=== PATIENT | female | born 1935 | race Caucasian/White ===

== ENCOUNTER 2019-12-17 15:46 | Observation (INO) | payer OTHER ==
[2019-12-17] MEDS ORDERED: MORPHINE 2 MG/ML SYR ONE ×2 (17:04→17:32)
[2019-12-17 17:19] LABS: Absolute Lymphocytes (CBC) 1.1 K/uL (0.7-4.9); Basophils % 0.6 % (0-1.3); Hematocrit 39.6 % (36.0-45.0); Lymphocytes % 9.3 % (15.3-44.8); MPV 9.8 fL (7.6-11.3); RBC Red Blood Cell Count 4.68 M/uL (3.86-4.86)
[2019-12-17 17:27] LABS: Potassium 3.7 mmol/L (3.5-5.1)
[2019-12-17] MEDS ORDERED: LIDOCAINE VISCOUS 2% SOLN 15 ML UDC ONE (17:32)
[2019-12-17] MEDS ORDERED: MAGNE/ALUM HYDROXD 30 ML UCUP ONE (17:32)
--- NOTE | 2019-12-17 17:48 | RAD REPORT ---
EXAM DESCRIPTION: CT - Abdomen Pelvis W Contrast - 12/17/2019 5:14 pm CLINICAL HISTORY: Low back pain COMPARISON: CT ABD PELVIS W CONTRAST dated 03/12/2014; Chest Pa And Lat (2 Views) dated 02/18/2019 TECHNIQUE: Biphasic, helical CT imaging of the abdomen and pelvis was performed following 100 ml non -ionic IV contrast. No oral contrast administered. All CT scans are performed using dose optimization technique as appropriate and may include automated exposure control or mA/KV adjustment according to patient size. FINDINGS: Parenchymal stranding in the left base is probably scarring. Atelectasis is possible. Mass lesion or infiltrate not suspected. No pleural effusion. No pericardial thickening or effusion. Liver is grossly abnormal. There are numerous variably sized low-density masses scattered throughout the hepatic parenchyma largest 18 mm in size. Imaging characteristics are not those of simple cysts. Metastatic disease is the primary consideration. No portal vein abnormality. No primary pancreatic so lid or cystic mass identified. Pancreatic duct is prominent but head and uncinate pancreatic tissue s how homogeneous enhancement and attenuation. No splenic abnormality. Gallbladder is absent. Biliary t ree within normal limits for a post cholecystectomy patient. The pancreatic and biliary dilatation ar e not substantially different from 2014. Symmetric renal function is seen with no hydronephrosis or suspicious renal mass. No pyelonephritis o r acute parenchymal process. Bilateral renal cysts are present. Right adrenal gland is normal. A 2 ce ntimeter lobulated enhancing left adrenal gland has not changed since 2014. Urinary bladder shows no suspicious finding. Atrophic uterus is present. No ovarian mass identifiable. No gastric dilatation or gastric wall thickening. No dilated small bowel or acute small bowel finding . There is a large amount of stool distending the cecum which is low-lying in the pelvic floor. Stool distends the ascending colon to the hepatic flexure level. An obstructing colon mass or wall thicken ing of the colon not identified. No free air, free fluid or inflammatory stranding. No hernia, mass or bulky lymphadenopathy. Disc and bone degenerative changes are present. Osteopenic changes are present. Patient has approxima tely 30% T10 and 50% T11 compression fracture deformity. Bones are osteopenic. Changes are probably n ew or progressive from February 2019. Age is otherwise uncertain. No clearly pathologic component. Significant portion of the right breast tissue is seen with no gross abnormality. Left breast tissue is not seen. The patient is status post left mastectomy. History from 2014 [address] study indicates breast cancer 1997 and lung cancer 1989. IMPRESSION: Innumerable low-density masses scattered throughout the hepatic parenchyma most likely m etastatic disease. Patient is far remote from breast and lung cancer history. The colon, uterus and ovaries show no christy s abnormalities. Primary source is uncertain. Osteopenic bony changes are present. No clearly pathologic bone process. Patient has T10 and T11 comp ression fractures with history indicating prior thoracic spine fracture. Age is uncertain but could b e new from February 2019.
--- NOTE | 2019-12-17 19:26 | EDPHYS ---
Physician Documentation [facility] Name: Kary Cesar Age: 83 yrs Sex: Female : 1935 Arrival Date: 12/17/2019 Time: 16:00 Bed 26 Private MD: ED Physician Alex Brownlee HPI: 12/17 07:37 This 83 yrs old Female presents to ER via EMS with complaints of Decreased kdr Appetite and low back pain. 07:37 Daughter reports that the patient has had decreased activity and appetite recently. kdr Also, she seems to be having more pain in her low back. Onset: The symptoms/episode began/occurred gradually, at an unknown time. Severity of symptoms: At their worst the symptoms were moderate. It is unknown whether or not the patient has had similar symptoms in the past. The patient has not recently seen a physician. Historical: - Allergies: 12/16 22:21 osteoarthritis; ls4 - Home Meds: 22:18 raloxifene 60 mg oral tab 1 tab once daily for Post-Menopausal Osteoporosis, Prevention ls4 of Breast Cancer [Active]; Xarelto 20 mg oral tab 1 tab once daily [Active]; - PMHx: 22:18 breast cancer; ls4 22:21 osteoarthritis; Osteoporosis; compression fractures thoracic spine; DVT; LUNG METASTES ls4 1989; - PSHx: 22:21 Cholecystectomy; LEFT MASTECTOMY; ls4 - Immunization history:: Adult Immunizations up to date. - Social history:: Smoking status: unknown. ROS: 12/17 07:37 Constitutional: Negative for fever, chills, and weight loss - the patinet is a poor kdr historian and slow to communicate but is generally appropirate Eyes: Negative for injury, pain, redness, and discharge, ENT: Negative for injury, pain, and discharge, Neck: Negative for injury, pain, and swelling, Cardiovascular: Negative for chest pain, palpitations, and edema, Respiratory: Negative for shortness of breath, cough, wheezing, and pleuritic chest pain, Abdomen/GI: Negative for abdominal pain, nausea, vomiting, diarrhea, and constipation, : Negative for injury, bleeding, discharge, and swelling, MS/Extremity: Negative for injury and deformity, Allergy/Immunology: Negative for hives, rash, and allergies. Back: Positive for pain at rest, pain with movement, of the low back area. MS/extremity: Positive for moving all fours. Skin: Positive for Poor skin turgor . Neuro: Positive for weakness, slow to respond but appropriate. Exam: 12/16 17:48 ECG was reviewed by the Attending Physician. kdr 12/17 07:37 Constitutional: This is a well developed, cachetic patient who is awake, somewhat and kdr in mild distress. She is moving her legs around as if in discomfort Head/Face: Normocephalic, atraumatic. Eyes: Pupils equal round and reactive to light, extra-ocular motions intact. Lids and lashes normal. Conjunctiva and sclera are non-icteric and not injected. Cornea within normal limits. Periorbital areas with no swelling, redness, or edema. Neck: Trachea midline, no thyromegaly or masses palpated, and no cervical lymphadenopathy. Supple, full range of motion without nuchal rigidity, or vertebral point tenderness. No Meningismus. Chest/axilla: Normal chest wall appearance and motion. Nontender with no deformity. No lesions are appreciated. Cardiovascular: Regular rate and rhythm with a normal S1 and S2. No gallops, murmurs, or rubs. Normal PMI, no JVD. No pulse deficits. Respiratory: Lungs have equal breath sounds bilaterally, clear to auscultation and percussion. No rales, rhonchi or wheezes noted. No increased work of breathing, no retractions or nasal flaring. Abdomen/GI: Soft, non-tender, with normal bowel sounds. No distension or tympany. No guarding or rebound. No evidence of tenderness throughout. Skin: Warm, dry with normal turgor. Normal color with no rashes, no lesions, and no evidence of cellulitis. MS/ Extremity: Pulses equal, no cyanosis. Neurovascular intact. Full, normal range of motion. Neuro: Awake and alert, GCS 15, oriented to person, place, time, and situation. Cranial nerves II-XII grossly intact. Motor strength 5/5 in all extremities. Sensory grossly intact. Cerebellar exam normal. Normal gait. Psych: Awake, alert, with orientation to person, place and time. Behavior, mood, and affect are within normal limits. Back: pain, that is mild, that is moderate, ROM is painful, normal spinal alignment noted. Vital Signs: 12/16 16:37 BP 168 / 82; Pulse 105; Resp 22; Temp 98.4; Pulse Ox 97% on R/A; dh4 18:00 BP 152 / 78; ls4 19:00 BP 148 / 70; Pulse 104; Resp 16; Pulse Ox 98% on R/A; Pain 5/10; ls4 20:00 BP 158 / 80; Pulse 104; Resp 16; Pulse Ox 98% on R/A; Pain 5/10; ls4 21:00 BP 129 / 70; Pulse 94; Resp 18; Pulse Ox 98% ; Pain 5/10; ls4 22:00 BP 125 / 68; Pulse 96; Resp 16; Temp 97.8(O); Pulse Ox 98% on R/A; Pain 5/10; ls4 MDM: 19:25 Patient medically screened. [facility] 12/17 07:37 Data reviewed: vital signs, nurses notes, lab test result(s), radiologic studies. kdr Counseling: I had a detailed discussion with the patient and/or guardian regarding: the historical points, exam findings, and any diagnostic results supporting the discharge/admit diagnosis, lab results, radiology results, the need for further work-up and treatment in the hospital. 12/16 16:44 Order name: CBC with Diff; Complete Time: 18:35 [facility] 12/16 16:44 Order name: Chem 7; Complete Time: 18:35 [facility] 12/16 19:40 Order name: Urinalysis W/Microscopic EDTN 12/16 19:40 Order name: Basic Metabolic Panel EDTN 12/16 19:40 Order name: Basic Metabolic Panel EDTN 12/16 19:40 Order name: CBC with Automated Diff EDTN 12/16 16:44 Order name: CT Abd/Pelvis - IV Contrast Only; Complete Time: 18:35 [facility] 12/16 19:40 Order name: Regular EDMS 12/16 19:40 Order name: CBC with Automated Diff EDMS 12/16 22:43 Order name: CREATININE WHOLE BLOOD EDMS EC/29 17:48 Rate is 106 beats/min. Rhythm is regular, Sinus tachycardia with PACs. QRS [place] is kdr Normal. Left axis deviation noted. SD interval is normal. QRS interval is normal. QT interval is normal. No Q waves. Clinical impression: NSR w/ Non-specific ST/T Changes and Sinus tachycardia. Administered Medications: 16:55 Drug: morphine 2 mg Route: IVP; Site: right antecubital; ls4 17:26 Drug: morphine 2 mg Route: IVP; Site: right antecubital; ls4 18:00 Follow up: Response: No adverse reaction; Marked relief of symptoms ls4 Disposition: 12/17/19 19:25 Hospitalization ordered by Cruzito Osman for Observation. Preliminary diagnosis are Weakness, Intractable Pain, Compression fractures of T10-T11, Metastatic (liver) cancer with uncertain primary source. - Bed requested for Telemetry/MedSurg (observation). - Status is Observation. sg - Condition is Fair. - Problem is an acute exacerbation. - Symptoms have improved. Signatures: Dispatcher [employer] EDMS Frankie Carr RN RN sg Alex Brownlee MD MD [facility] Tanisha Scales RN RN Brandie Crawley RN RN ls4 Corrections: (The following items were deleted from the chart) 16:49 16:44 Spine Lumbar Wo Con+CT.RAD.BRZ ordered. EDTN EDTN 19:34 19:25 Hospitalization Ordered by Cruzito Osman MD for Observation. Preliminary kdr diagnosis is Wedge compression fracture of T11-T12 vertebra; Weakness; Intractable Pain. Bed requested for Telemetry/MedSurg (observation). Status is Observation. Condition is Fair. Problem is an acute exacerbation. Symptoms have improved. kdr 20:37 19:34 12/17/2019 19:25 Hospitalization Ordered by Cruzito Osman MD for Observation. cg Preliminary diagnosis is Weakness; Intractable Pain; Compression fractures of T10-T11; Metastatic (liver) cancer with uncertain primary source. Bed requested for Telemetry/MedSurg (observation). Status is Observation. Condition is Fair. Problem is an acute exacerbation. Symptoms have improved. kdr 20:39 20:37 12/17/2019 19:25 Hospitalization Ordered by Cruzito Osman MD for Observation. sg Preliminary diagnosis is Weakness; Intractable Pain; Compression fractures of T10-T11; Metastatic (liver) cancer with uncertain primary source. Bed requested for Telemetry/MedSurg (observation). Status is Observation. Condition is Fair. Problem is an acute exacerbation. Symptoms have improved. cg 22:49 20:39 12/17/2019 19:25 Hospitalization Ordered by Cruzito Osman MD for Observation. sg Preliminary diagnosis is Weakness; Intractable Pain; Compression fractures of T10-T11; Metastatic (liver) cancer with uncertain primary source. Bed requested for Telemetry/MedSurg (observation). Status is Observation. Condition is Fair. Problem is an acute exacerbation. Symptoms have improved. sg
--- NOTE | 2019-12-17 19:26 | ER ---
Nurse's Notes [facility] Name: Kary Cesar Age: 83 yrs Sex: Female : 1935 Arrival Date: 12/17/2019 Time: 16:00 Bed 26 Private MD: Diagnosis: Weakness;Intractable Pain;Compression fractures of T10-T11;Metastatic (liver) cancer with uncertain primary source Presentation: 12/16 16:47 Chief complaint: EMS states: that daughter Kylee Alcala called them because her ls4 mother has been eating very little, she doesn't do much other than lie around. As per pt daughter, the patient has old compression fractuires in the thoracic area, but lately she has been having increased pain in the lumbar area. 20:36 Acuity: CINDY 3 sg 22:00 Coronavirus screen: Patient denies a cough. Patient denies shortness of breath or ls4 difficulty breathing. Patient denies measured and/or subjective temperature greater than 100.4F prior to today's visit. Patient denies travel on a cruise ship or to a country the [facility] currently lists as an affected area. Patient denies contact with known and/or suspected case of COVID-19. Proceed with normal triage. Ebola Screen: No symptoms or risks identified at this time. Initial Sepsis Screen: Does the patient meet any 2 criteria? No. Patient's initial sepsis screen is negative. Does the patient have a suspected source of infection? No. Patient's initial sepsis screen is negative. Risk Assessment: Do you want to hurt yourself or someone else? Patient reports no desire to harm self or others. Onset of symptoms is unknown. 22:00 Method Of Arrival: EMS: [facility] ls4 Triage Assessment: 14:10 General: Appears uncomfortable, cachectic, Behavior is quiet. Pain: Complains of pain ls4 in lumbar area and sacrum Pain currently is 8 out of 10 on a pain scale. Neuro: Level of Consciousness is awake, alert, obeys commands, Oriented to person, place, time, situation. Cardiovascular: Denies chest pain, Capillary refill < 3 seconds Patient's skin is warm and dry. Rhythm is regular. Respiratory: Airway is patent Respiratory effort is even, unlabored, Respiratory pattern is regular, Breath sounds are clear bilaterally. GI: Abdomen is Bowel sounds present X 4 quads. Abd is soft and non tender X 4 quads. Historical: - Allergies: 22:21 osteoarthritis; ls4 - Home Meds: 22:18 raloxifene 60 mg oral tab 1 tab once daily for Post-Menopausal Osteoporosis, Prevention ls4 of Breast Cancer [Active]; Xarelto 20 mg oral tab 1 tab once daily [Active]; - PMHx: 22:18 breast cancer; ls4 22:21 osteoarthritis; Osteoporosis; compression fractures thoracic spine; DVT; LUNG METASTES ls4 1989; - PSHx: 22:21 Cholecystectomy; LEFT MASTECTOMY; ls4 - Immunization history:: Adult Immunizations up to date. - Social history:: Smoking status: unknown. Screenin:00 Abuse screen: Denies threats or abuse. Denies injuries from another. Nutritional ls4 screening: No deficits noted. Tuberculosis screening: No symptoms or risk factors identified. Fall Risk None identified. Assessment: 17:00 Reassessment: Patient appears in no apparent distress at this time. Patient and/or ls4 family updated on plan of care and expected duration. Pain level reassessed. Resting Quietly. 18:00 Reassessment: Patient appears in no apparent distress at this time. Patient and/or ls4 family updated on plan of care and expected duration. Pain level reassessed. Patient states symptoms have improved. 19:00 Reassessment: Patient appears in no apparent distress at this time. Patient and/or ls4 family updated on plan of care and expected duration. Pain level reassessed. Patient is alert, oriented x 3, equal unlabored respirations, skin warm/dry/pink. 20:35 Reassessment: Patient appears in no apparent distress at this time. sg 20:35 Reassessment: No changes from previously documented assessment. pt resting quietly, NAD.ls4 20:35 Neuro: Level of Consciousness is awake, alert, obeys commands, Oriented to person, ls4 situation. 21:35 Reassessment: Patient appears in no apparent distress at this time. Patient and/or ls4 family updated on plan of care and expected duration. Pain level reassessed. Resting quietly. Pain improved. 22:00 Reassessment: Patient appears in no apparent distress at this time. No changes from ls4 previously documented assessment. Patient and/or family updated on plan of care and expected duration. Pain level reassessed. Vital Signs: 16:37 BP 168 / 82; Pulse 105; Resp 22; Temp 98.4; Pulse Ox 97% on R/A; dh4 18:00 BP 152 / 78; ls4 19:00 BP 148 / 70; Pulse 104; Resp 16; Pulse Ox 98% on R/A; Pain 5/10; ls4 20:00 BP 158 / 80; Pulse 104; Resp 16; Pulse Ox 98% on R/A; Pain 5/10; ls4 21:00 BP 129 / 70; Pulse 94; Resp 18; Pulse Ox 98% ; Pain 5/10; ls4 22:00 BP 125 / 68; Pulse 96; Resp 16; Temp 97.8(O); Pulse Ox 98% on R/A; Pain 5/10; ls4 ED Course: 16:00 Patient arrived in ED. ls4 16:00 Resting quietly. ls4 16:00 Patient has correct armband on for positive identification. Bed in low position. Call ls4 light in reach. Side rails up X 1. education supervisor on. Pulse ox on. NIBP on. Warm blanket given. Pillow given. Verbal reassurance given. Diet: Patient is NPO. 16:00 No provider procedures requiring assistance completed. Maintain EMS IV. Dressing ls4 intact. Site clean \T\ dry. Gauge \T\ site: 20 g rt ac. Patient maintains SpO2 saturation greater than 95% on room air. 16:01 Arm band placed on. ls4 16:16 Alex Brownlee MD is Attending Physician. kdr 16:47 Brandie Crawley RN is Primary Nurse. ls4 17:00 Initial lab(s) drawn, by pa, sent to lab. EKG done, by ED staff, reviewed by Alex Brownlee MD. 17:14 CT Abd/Pelvis - IV Contrast Only In Process Unspecified. EDMS 19:23 Cruzito Osman MD is Hospitalizing Provider. kdr 20:36 Triage completed. sg 22:22 Patient admitted, IV remains in place. intact, No redness/swelling at site. ls4 Administered Medications: 16:55 Drug: morphine 2 mg Route: IVP; Site: right antecubital; ls4 17:26 Drug: morphine 2 mg Route: IVP; Site: right antecubital; ls4 18:00 Follow up: Response: No adverse reaction; Marked relief of symptoms ls4 Outcome: 19:25 Decision to Hospitalize by Provider. kdr 22:22 Admitted to Med/surg accompanied by nurse, room 229, Report called to TAWANA carrasquillo 22:22 Condition: stable 22:22 Discharge instructions given to patient, Instructed on medication usage, safety practices, Demonstrated understanding of 22:49 Patient left the ED. sg Signatures: Dispatcher [employer] EDMS Frankie Carr RN RN sg Rittger, Kevin, MD MD [facility] Brandie Crawley RN RN ls4 [facility] Corrections: (The following items were deleted from the chart) 12/17 00:12/16 21:35 Reassessment: Patient appears in no apparent distress at this time. Patient ls4 and/or family updated on plan of care and expected duration. Pain level reassessed. Patient is alert, oriented x 3, equal unlabored respirations, skin warm/dry/pink. ls4 12/17 00:12/16 22:00 Reassessment: Patient appears in no apparent distress at this time. Patient ls4 and/or family updated on plan of care and expected duration. Pain level reassessed. Patient is alert, oriented x 3, equal unlabored respirations, skin warm/dry/pink. ls4 12/17 00:12/16 18:00 Reassessment: Patient appears in no apparent distress at this time. Patient ls4 and/or family updated on plan of care and expected duration. Pain level reassessed. Patient is alert, oriented x 3, equal unlabored respirations, skin warm/dry/pink. ls4 12/17 00:12/16 17:00 Reassessment: Patient appears in no apparent distress at this time. Patient ls4 and/or family updated on plan of care and expected duration. Pain level reassessed. Patient is alert, oriented x 3, equal unlabored respirations, skin warm/dry/pink. ls4
[2019-12-17] MEDS ORDERED: MORPHINE 2 MG/ML SYR IV PRN (19:37)
[2019-12-17] MEDS ORDERED: ONDANSETRON 4 MG/2 ML VIAL IV PRN (19:37)
[2019-12-17 23:00] VITALS: BMI 16.2
[2019-12-17] MEDS: D5 0.45 NS 1,000 ML IV SCH (23:16)
[2019-12-18 05:42] LABS: Absolute Lymphocytes (CBC) 0.9 K/uL (0.7-4.9); Basophils % 0.3 % (0-1.3); Hematocrit 32.9 % (36.0-45.0); Lymphocytes % 10.2 % (15.3-44.8); MPV 9.8 fL (7.6-11.3); Potassium 3.5 mmol/L (3.5-5.1)
[2019-12-18 06:30] LABS: Blood Morphology Comment NOT SEEN (NOT SEEN); Platelet Estimate DECR
[2019-12-18 10:31] LABS: Urine Appearance CLEAR; Urine Blood 1+ (NEG); Urine Color YELLOW; Urine Glucose NEGATIVE (NEG); Urine Protein 1+ (NEG); Urine Specific Gravity >=1.030 (1.005-1.030)
[2019-12-18 10:41] LABS: Urine Bilirubin NEGATIVE (NEG)
[2019-12-18] MEDS: D5 0.45 NS 1,000 ML IV SCH ×2 (10:53→12:40)
[2019-12-18 11:37] LABS: Urine Amorphous Sediment 1+ /HPF (NONE SEEN); Urine Bacteria <20 /HPF (<20); Urine Culture Reflex Order NOT NEEDED; Urine RBC <5 /HPF (NONE SEEN)
[2019-12-18 15:09] LABS: Potassium 3.7 mmol/L (3.5-5.1)
[2019-12-18 15:17] LABS: Albumin 2.6 g/dL (3.4-5.0); Bilirubin Direct 0.2 mg/dL (0-0.2); Bilirubin Total 0.4 mg/dL (0.2-1.0); Protein, Total 6.3 g/dL (6.4-8.2)
[2019-12-18 15:33] LABS: Absolute Lymphocytes (CBC) 1.2 K/uL (0.7-4.9); Basophils % 0.3 % (0-1.3); Hematocrit 34.2 % (36.0-45.0); Lymphocytes % 11.9 % (15.3-44.8); RBC Red Blood Cell Count 4.06 M/uL (3.86-4.86)
[2019-12-18] MEDS: RIVAROXABAN 20 MG TABLET PO SCH (17:20)
[2019-12-18] MEDS: ENSURE ENLIVE 237 ML CAN PO SCH (21:41)
[2019-12-19] MEDS: D5 0.45 NS 1,000 ML IV SCH (03:47)
[2019-12-19] MEDS: ENSURE ENLIVE 237 ML CAN PO SCH (08:35)
[2019-12-19] MEDS ORDERED: RALOXIFENE HCL 60 MG TAB PO SCH (09:00)
[2019-12-19] MEDS: ACETAMINOPHEN 500 MG TAB PO PRN ×2 (11:36→16:59)
--- NOTE | 2019-12-19 11:43 | PN ---
Date of Progress Note: 12/19/2019 Subjective: The patient basically status quo. Complains of pain in the lumbosacral area. Minimal i ntake. Has been admitted to the hospice and this should be appropriate to go today. HR/MODL Voice ID: [id number] Report ID: [id number]
[2019-12-19 13:02] VITALS: O2SAT 94
[2019-12-19 16:35] VITALS: BP 136/61; TEMP 97.2
[2019-12-19] MEDS: RIVAROXABAN 20 MG TABLET PO SCH (16:58)
--- NOTE | 2019-12-19 19:29 | HP ---
Date of Admission: 12/17/2019 Chief Complaint: Generalized malaise, back pain, anorexia. History Of Present Illness: The patient's history was obtained mainly from the daughter approximatel y a week ago. She stated she has started going downhill as far as her appetite and responsiveness is concerned, a minimal amount of intake. Home Health consultation was instituted. Over the next coupl e days, patient's condition waned and waxed. However, the day prior to admission, according to the davon werner, she became increasingly immobile and had increased complaints in regard to her back pain. H er intake is also markedly decreased. Sensorium unchanged since she was brought to the emergency elke for further evaluation. Past Medical History: The patient has been a healthy, good health for her age over the past few year s. Over 20 years ago she was diagnosed with breast cancer who later has a lung metastasis and had a partial lobectomy. Since that time she has been relatively in good health. She had problems with ashley rderline pancreatic enzymes. However, these have been stabilized over the year. Has been a few epis odes of hypertension which is also stabilized. The patient was diagnosed with a DVT approximately 3 weeks ago, has been on Xarelto since. Family History: Noncontributory. Social History: Nonsmoker, nondrinker. Physical Examination: General: The patient is slightly confused, disoriented, elderly female in moderate amount of distres s secondary to back pain. Vital signs: Stable vital signs. Head and neck: Normocephalic. Pupils equal and reactive to light and accommodation. Fundi negative . Trachea midline. Thyroid not palpable. ENT: Negative. Chest: Clear to P and A. Cardiovascular: PMI, midclavicular line. Heart: Sounds normal. Peripheral pulses present and equal bilaterally. Abdomen: No organomegaly. Bowel sounds hyperactive. Extremities: Moderately dehydrated. Good tone and movement bilaterally. Reflexes: Physiologic. Rectal: Deferred. Pelvic: Deferred. Impression: Altered mental status, dehydration, generalized malaise, and low back pain. Plan: The patient to be admitted. IV fluids will be started and an evaluation workup will be done. The latter revealed a CT scan with apparent metastatic, multiple liver nodules and some compression fractures, subacute that is possibly acute. The patient has a diagnosis of breast cancer with metast asis. She was given morphine to control the pain and admitted to continue on her raloxifene and Xare lto. The patient is more comfortable after the analgesic treatment. However, her intake is still decrease d significantly as with her orientation. Discussion of her status with the family and hospice was ag deric upon. HR/MODL Voice ID: [id number]
== END 2019-12-19 17:57 | disposition hospice, home (50) ==
LOC: ER 15:46 → ERHOLD 20:30 → INTOOBSV 20:30 → 2ND 22:03
PROVIDERS: ADMIT Family Medicine; ATTEND Family Medicine
DX: E86.0 Dehydration (principal); R41.82 Altered mental status, unspecified; M48.54XA Collapsed vertebra, not elsewhere classified, thoracic region, initial encounter for fracture; C78.7 Secondary malignant neoplasm of liver and intrahepatic bile duct; I82.409 Acute embolism and thrombosis of unspecified deep veins of unspecified lower extremity; M81.0 Age-related osteoporosis without current pathological fracture; M19.90 Unspecified osteoarthritis, unspecified site; Z20.828 Contact with and (suspected) exposure to other viral communicable diseases; Z79.01 Long term (current) use of anticoagulants; Z85.3 Personal history of malignant neoplasm of breast; Z85.118 Personal history of other malignant neoplasm of bronchus and lung; Z90.12 Acquired absence of left breast and nipple; Z90.2 Acquired absence of lung [part of]; Z90.49 Acquired absence of other specified parts of digestive tract
CPT/HCPCS: 93005; 85025 ×3; 81001; 80048 ×3; 36415; 82565; 80076; 74177; 96374; 99285; U0002; Q9967; J2270 ×3; J7799 ×3; G0378 ×4